=== PATIENT | male | born 1980 | race Caucasian/White ===

== ENCOUNTER 2018-05-27 13:32 | Emergency (ER) | payer SELFPAY ==
[2018-05-27 13:41] VITALS: BP 138/86
--- NOTE | 2018-05-27 14:05 | EDPHY ---
H & P Stated Complaint: tooth pain, 2 days Time Seen by Provider: 05/27/18 13:53 HPI/ROS: Chief Complaint: Left lower tooth pain HPI: 38-year-old male presenting with left lower tooth pain for the last 2 days. Patient states the filling fell about 3 weeks ago and has been packing it with dental paste. Start having tooth pain and swelling of his gums 2 days ago. Has been taking Tylenol with minimal relief. He is not showing on that side. Does have a history of poor dentition in the past. He has not seen a dentist. ROS: 10 point Review of Systems is negative except as noted in the HPI. PMH: Denies Social History: Positive smoking, occasional alcohol Family History: non-contributory Physical Exam: General: Awake, alert, no acute distress Mouth, patient has multiple dental caries. He has got tenderness percussion of his left lower molar. No trismus. There is minimal erythema without fluctuance or pointing. No submandibular lymphadenopathy. No cervical lymphadenopathy. Skin: No rash - Personal History Current Tetanus Diphtheria and Acellular Pertussis (TDAP): Yes - Medical/Surgical History Hx Asthma: Yes Hx Chronic Respiratory Disease: No Hx Diabetes: No Hx Cardiac Disease: No Hx Renal Disease: No Hx Cirrhosis: No Hx Alcoholism: No Hx HIV/AIDS: No Hx Splenectomy or Spleen Trauma: No Other PMH: ortho surgeries, spinal stenosis - Social History Smoking Status: Current every day smoker Constitutional: Initial Vital Signs Temperature (C) 36.7 C 05/27/18 13:37 Heart Rate 71 05/27/18 13:37 Respiratory Rate 16 05/27/18 13:37 Blood Pressure 138/86 H 05/27/18 13:37 O2 Sat (%) 96 05/27/18 13:37 O2 Delivery Mode Room Air Allergies/Adverse Reactions: aspirin Adverse Reaction (Verified 05/27/18 13:42) Home Medications: Medication Instructions Recorded Amoxicillin Trihydrate [Amoxil] 500 mg PO Q8H #30 cap 05/27/18 Ms Contin 05/27/18 Percocet 5-325 mg Tablet 05/27/18 Medical Decision Making ED Course/Re-evaluation: 30-year-old male presenting with dental pain. Will start him on amoxicillin. Will continue alternating acetaminophen with ibuprofen. Follow up with dentist in 2-3 days. Departure - Departure Disposition: Home, Routine, Self-Care Clinical Impression: Dental abscess Condition: Good Instructions: Dental Abscess (ED) Additional Instructions: Please take your full course of antibiotics. Alternate acetaminophen (1000 mg) with ibuprofen (400 mg) every 4 hours as needed for fevers, chills, aches or pain. Follow up with dentist in 3-4 days for further evaluation. Referrals: [facility] [Outside] - As per Instructions Prescriptions: Amoxicillin Trihydrate [Amoxil] 500 mg PO Q8H #30 cap
== END 2018-05-27 14:20 | disposition home or self-care (01) ==
LOC: CED 13:32
DX: K04.7 Periapical abscess without sinus (principal); F17.200 Nicotine dependence, unspecified, uncomplicated; J45.909 Unspecified asthma, uncomplicated